=== PATIENT | female | born 1950 | race Asian ===

== ENCOUNTER 2019-12-19 04:50 | Inpatient (IN) | payer OTHER, MEDICARE ==
[2019-12-18 15:39] VITALS: BMI 27.7
[~2019-12-19 04:50] MED LIST: ERTAPENEM SODIUM 1 GM in SODIUM CHLORIDE 50 ML IVPB ONE
[2019-12-19] MEDS ORDERED: ERTAPENEM SODIUM 1 GM VIAL ONE (07:12)
[2019-12-19] MEDS ORDERED: ALVIMOPAN 12 MG CAP PO ONE (07:15)
[2019-12-19] MEDS ORDERED: PROMETHAZINE HCL 25 MG/1 ML VIAL IVPB PRN (08:12)
[2019-12-19] MEDS ORDERED: ONDANSETRON 4 MG/2 ML VIAL IVPUSH PRN ×2 (08:12→15:43)
[2019-12-19] MEDS ORDERED: LACTATED RINGERS SOLUTION 1,000 ML IV SCH (08:15)
[2019-12-19] MEDS ORDERED: BACITRACIN 15 GM TUBE TOPICAL OINTMENT ONE (08:37)
[2019-12-19] MEDS ORDERED: BENZOIN/ALOE VERA/STORAX/TOLU 58 ML BOTTLE ONE (08:37)
[2019-12-19] MEDS ORDERED: BUPIVACAINE LIPOSOME/PF (EXPAREL) 266 MG/20 ML VIAL ONE (09:02)
[2019-12-19] MEDS ORDERED: BUPIVACAINE HCL/PF 0.25% (2.5MG/ML) 10 ML VIAL ONE ×2 (09:02→10:24)
[2019-12-19] MEDS ORDERED: GABAPENTIN 300 MG CAPSULE PO ONE ×2 (09:13→09:15)
[2019-12-19] MEDS ORDERED: MIDAZOLAM HCL 2 MG/2 ML SINGLE DOSE VIAL ONE ×2 (09:24→15:27)
[2019-12-19] MEDS ORDERED: PROPOFOL 20 ML ONE (09:24)
[2019-12-19] MEDS ORDERED: ROCURONIUM BROMIDE 50 MG/5 ML SYRINGE ONE (09:24)
[2019-12-19] MEDS ORDERED: ERTAPENEM SODIUM 1 GM VIAL IVPB ONE (09:47)
[2019-12-19] MEDS ORDERED: DEXAMETHASONE SOD PHOSPHATE 4 MG/1 ML VIAL ONE ×2 (09:49→12:11)
[2019-12-19] MEDS ORDERED: BUPIVACAINE HCL/PF 2.5 MG/ML - 30 ML VIAL IJ ONE ×2 (10:15)
[2019-12-19] MEDS ORDERED: GLYCOPYRROLATE 0.2 MG/1 ML VIAL ONE (10:26)
[2019-12-19] MEDS ORDERED: BUPIVACAINE LIPOSOME/PF (EXPAREL) 266 MG/20 ML VIAL NR ONE (10:48)
[2019-12-19] MEDS ORDERED: ACETAMINOPHEN INJECTION 100 ML IVPB ONE ×2 (12:12→19:18)
[2019-12-19] MEDS ORDERED: NEOSTIGMINE METHYLSULFATE 0.5 MG/ML - 10 ML MDV ONE (12:46)
[2019-12-19] MEDS ORDERED: KETOROLAC TROMETHAMINE 30 MG/1 ML VIAL ONE (14:33)
--- NOTE | 2019-12-19 15:37 | OP ---
Operative Note - Note: Operative Date: 12/19/19 Pre-Operative Diagnosis: Cecal Adenoca Operation: laparoscopic extended right hemicoloectomy Post-Operative Diagnosis: Same as Pre-op Anesthesia: General Specimens Removed: right colon and part of transverse colon Estimated Blood Loss (mls): 50 Operative Report Dictated: Yes
[2019-12-19] MEDS ORDERED: oxyCODONE HCL 5 MG TABLET PO PRN (15:43)
[2019-12-19] MEDS ORDERED: DEXTROSE 5%-0.45% SALINE 1,000 ML IV SCH (15:45)
[2019-12-19] MEDS ORDERED: LABETALOL HCL 5 MG/1 ML (100MG/20 ML VIAL) IVPUSH ONE (19:07)
[2019-12-19] MEDS: ACETAMINOPHEN 1000 MG/100 ML VIAL (NON FORMULARY) IVPB SCH (19:15)
[2019-12-19] MEDS ORDERED: KETOROLAC TROMETHAMINE 15 MG/ML VIAL IVPUSH PRN (20:30)
[2019-12-19] MEDS: ATENOLOL 50 MG TABLET (FP) PO SCH (22:10)
[2019-12-19] MEDS: ATORVASTATIN CA 10 MG TABLET (FP) PO SCH (22:10)
[2019-12-19] MEDS: HEPARIN NA (PORCINE) 5,000 UNITS/ML 1ML VIAL SQ SCH (22:10)
[2019-12-19] MEDS: amLODIPine BESYLATE 5 MG TABLET (FP) PO SCH (22:10)
[2019-12-19] MEDS: ALVIMOPAN 12 MG CAP PO SCH ×2 (22:10→22:12)
[2019-12-20] MEDS: ACETAMINOPHEN 1000 MG/100 ML VIAL (NON FORMULARY) IVPB SCH ×2 (01:13→05:56)
--- NOTE | 2019-12-20 02:01 | OP ---
DATE OF OPERATION: 12/19/2019 PREOPERATIVE DIAGNOSIS: Right colon mass, adenocarcinoma of the colon. POSTOPERATIVE DIAGNOSIS: Right colon mass, adenocarcinoma of the colon. PROCEDURE: Laparoscopic right extended hemicolectomy. SURGEON: Jordan Stein MD VICTIM[employer] ADVOCATE CLERK/SPECIALIST: MILAD Miguel COMPLICATIONS: None. BLEEDING: Minimal. CONDITION: Patient tolerated the procedure well. INDICATIONS: This is a 69-year-old female who presents with anemia and blood in the stools. She underwent an evaluation by colonoscopy, which revealed a right colonic mass, which biopsies were consistent with adenocarcinoma. She also had a transverse colon lesion, which showed some evidence of dysplasia. As a result, it was decided to perform a laparoscopic extended right hemicolectomy in order to remove both lesions. DESCRIPTION OF PROCEDURE: In the operating room, she was then placed in the supine position. After the induction of general anesthesia, she was prepped and draped in the usual sterile fashion. She received DVT prophylaxis and IV antibiotics, gabapentin, and Tylenol preoperatively. At this point in time, the procedure was begun. Insufflation of the Veress needle up to a pressure of 15 mmHg. A total of 4 ports were introduced through the standard Optiview trocar in the left subcostal margin. The ports were placed in an arc fashion along the left paramedian line. The dissection was begun with the patient in the reverse Trendelenburg position and mobilization of the ileocolic artery and entrance into the retroperitoneal space using LigaSure. The ileocolic artery was then divided with Endo FIFI stapler. Mobilization of the mesentery along the transverse colon was then performed. The lesser sac was entered and the omentum, which was quite extensive in the transverse colon appeared to be quite redundant and tortuous. Dissection was carried through towards the hepatic flexure with separation of the omentum from the transverse colon. The transverse colon was then freed from the hepatic flexure and mobilized until the duodenum could be visualized. At this point, the middle colic artery was then dissected off of the digastric epiploic artery in order to allow free mobilization of the mesentery of the transverse colon. Then, the transverse colon was then divided with Endo FIFI stapler. The mesentery was further mobilized. At this point, the ileum was divided with Endo FIFI stapler white cartridge and then the colon was then mobilized off of the white line of Toldt using LigaSure and completely freed from the retroperitoneal attachments to Gerota fascia. The specimen was placed in the pelvis. We stopped at this point. Some adhesions to the left anterior abdominal wall by the splenic flexure were mobilized due to some tension. This allowed complete relaxation of the transverse colon allowing for a tension-free anastomosis. An isoperistaltic [id number] anastomosis was then performed using an Endo FIFI stapler purple cartridge, which was fired between 2 enterotomies. A common channel enterotomy was first approximated with 3 sutures of 2-0 silk and then stapler with purple cartridge was then used to close the enterotomy. Multiple omental sutures were then placed to omental buttress over the anastomosis using a 2-0 PDS suture in a running fashion and then the mesenteric defect was closed using 2-0 V-Loc suture in a running fashion. With that completed, final check for hemostasis was confirmed. The right upper quadrant and right lower quadrant and pelvis were irrigated and suctioned. There was no significant bleeding. Final check for hemostasis was performed. Specimen was placed in Endo Catch bag and the left lower quadrant incision was expanded for approximately about 6 cm. Specimen was placed in the Endo Catch bag. An Tyree wound protector was positioned. Specimen was brought out through this incision and removed completely. A _Closure tray____ was brought into the field and the area was reprepped and draped. We changed gowns and gloves and then the wound was closed in 2 layers using 0 Vicryl sutures to close the posterior layer and then the anterior fascia was closed with number 1 Vicryl. The skin was closed with 4-0 Monocryl. Dermabond was applied. The patient was brought to the recovery room, awake and alert. Patient tolerated the procedure well. Arnie [id number] MTDJan
[2019-12-20] MEDS: HEPARIN NA (PORCINE) 5,000 UNITS/ML 1ML VIAL SQ SCH ×3 (05:56→21:21)
[2019-12-20 07:56] LABS: HEMATOCRIT 31.3 % (32.4-45.2); HEMOGLOBIN 10.2 GM/dL (10.7-15.3); MCH 27.2 pg (25.7-33.7); MCHC 32.7 g/dl (32.0-36.0); MEAN CELL VOLUME 83.1 fl (80-96); MEAN PLT VOLUME 7.9 fl (7.5-11.1); PLATELET COUNT 244 K/MM3 (134-434); RBC 3.77 M/mm3 (3.60-5.2); WHITE BLOOD COUNT 9.6 K/mm3 (4.0-10.0)
[2019-12-20] MEDS ORDERED: PT OWN MED DRAWER 7, Y5N ONE ×3 (08:19→20:59)
--- NOTE | 2019-12-20 08:27 | PN ---
Progress Note (short form) - Note Progress Note: Anesthesia POD#1 S/P Laproscopic Right Colectomy under GA VSS,no N/V, pain is under control. No other complications seen. Clemencia Hector MD.
[2019-12-20 08:45] LABS: CALCIUM 8.5 mg/dL (8.5-10.1); CREATININE 1.9 mg/dL (0.55-1.3); POTASSIUM 4.7 mmol/L (3.5-5.1)
[2019-12-20] MEDS ORDERED: PATIENT'S OWN MEDICATION (NON-FORMULARY) (Simvastatin 10 MG) PO SCH (10:00)
[2019-12-20] MEDS ORDERED: PATIENT'S OWN MEDICATION (NON-FORMULARY) (Telmisartan [Telmisartan] 80 MG) PO SCH (10:00)
[2019-12-20] MEDS: ERTAPENEM SODIUM 1 GM in SODIUM CHLORIDE 50 ML IVPB SCH (10:18)
[2019-12-20] MEDS: ALLOPURINOL 100 MG TABLET (FP) PO SCH (10:19)
[2019-12-20] MEDS: amLODIPine BESYLATE 2.5 MG TABLET (FP) PO SCH (10:19)
[2019-12-20] MEDS: ATENOLOL 50 MG TABLET (FP) PO SCH ×2 (10:19→21:21)
[2019-12-20] MEDS: VALSARTAN 160 MG TABLET (UD) PO SCH (10:20)
[2019-12-20] MEDS ORDERED: traMADol HCL 50 MG TABLET PO PRN (10:22)
[2019-12-20] MEDS: ALVIMOPAN 12 MG CAP PO SCH ×2 (10:23→21:21)
--- NOTE | 2019-12-20 10:34 | PN ---
Progress Note (short form) - Note Progress Note: POD#1 Pt without complaints this am. Tolerating clears. No nausea or emesis. No flatus. Quiroga removed awaiting to urinate. Vital Signs Period Temp Pulse Resp BP Sys/Shepherd Pulse Ox Last 24 Hr 97.6 F-98.2 F 57-90 11-20 113-171/59-96 97-100 GEN: A&0 x3, NAD CV: RRR Lungs: CTA b/l ABD: soft, non-distended, inc tenderness. Inc c/d/i with dermabond LE: no calf tenderness or swelling b/l. TEDs in place CBC, BMP 02/27/20 07:05 02/27/20 07:05 A/P: 69 yo female s/p right hemicolectomy, POD#1 Continue clears as tolerated OOB and ambulate DVT with heparin SQ, MARIA LUZ/SCDS/ambulate Continue IV fluids oral pain medication with tylenol and ultram as needed D/w. Dr. Jimenez
--- NOTE | 2019-12-20 10:47 | PN ---
Progress Note (short form) - Note Progress Note: please see other note written on this date
--- NOTE | 2019-12-20 10:49 | SURG ---
Surgery Yoga Teacher Note Yoga Teacher: Essence Dorsey PA-C Date of Service: 12/19/19 Diagnosis: Cecal Adenoca Procedure: laparoscopic extended right hemicoloectomy I was present for the entirety of the operative procedure. For further detail, please refer to operative report. Visit type - Case Type Case Type: Scheduled - Emergency Emergency Visit: No - New patient This patient is new to me today: Yes Date on this admission: 12/20/19
--- NOTE | 2019-12-20 12:56 | PN ---
Progress Note (short form) - Note Progress Note: Medical coverage for Dr Jc Current Medications Acetaminophen (Tylenol Oral Solution -) 650 mg PO Q6H PRN PRN Reason: PAIN LEVEL 1-5 Allopurinol (Zyloprim -) 100 mg PO DAILY [facility] Last Admin: 12/20/19 10:19 Dose: 100 mg Alvimopan (Entereg Capsule (Restricted) -) 12 mg PO BID [facility] Last Admin: 12/20/19 10:23 Dose: 12 mg Amlodipine Besylate (Norvasc -) 2.5 mg PO DAILY [facility] Last Admin: 12/20/19 10:19 Dose: 2.5 mg Amlodipine Besylate (Norvasc -) 5 mg PO HS [facility] Last Admin: 12/19/19 22:10 Dose: 5 mg Atenolol (Tenormin -) 50 mg PO BID [facility] Last Admin: 12/20/19 10:19 Dose: 50 mg Atorvastatin Calcium (Lipitor -) 10 mg PO HS [facility] Last Admin: 12/19/19 22:10 Dose: 10 mg Heparin Sodium (Porcine) (Heparin -) 5,000 unit SQ TID [facility] Last Admin: 12/20/19 05:56 Dose: 5,000 unit Dextrose/Sodium Chloride (D5-1/2ns -) 1,000 mls @ 100 mls/hr IV ASDIR [facility] Last Admin: 12/19/19 19:30 Dose: 0 mls Ertapenem 1 gm/ Sodium (Chloride) 50 mls @ 100 mls/hr IVPB DAILY [facility] Stop: 12/21/19 08:59 Last Admin: 12/20/19 10:18 Dose: 100 mls/hr Ondansetron HCl (Zofran Injection) 4 mg IVPUSH Q6H PRN PRN Reason: NAUSEA AND/OR VOMITING Promethazine HCl (Phenergan Injection -) 12.5 mg IVPB Q6H PRN PRN Reason: NAUSEA-FOR RESCUE AFTER 15 MIN Tramadol HCl (Ultram -) 50 mg PO Q8H PRN PRN Reason: PAIN LEVEL 6-10 Valsartan (Diovan -) 320 mg PO DAILY [facility] Last Admin: 12/20/19 10:20 Dose: 320 mg Laboratory Results - last 24 hr 02/26/20 02/27/20 02/27/20 21:30 07:05 07:05 WBC 9.6 RBC 3.77 Hgb 10.2 L Hct 31.3 L D MCV 83.1 MCH 27.2 MCHC 32.7 RDW 16.0 H Plt Count 244 D MPV 7.9 Sodium 138 Potassium 4.7 Chloride 110 H Carbon Dioxide 19 L Anion Gap 9 BUN 32.0 H Creatinine 1.9 H Est GFR (CKD-EPI)AfAm 30.21 Est GFR (CKD-EPI)NonAf 26.07 Random Glucose 188 H Calcium 8.5 Blood Type B POSITIVE Antibody Screen Negative Vital Signs Temperature 97.5 F L 12/20/19 10:00 Pulse Rate 62 12/20/19 10:00 Respiratory Rate 20 12/20/19 10:00 Blood Pressure 144/79 12/20/19 10:00 O2 Sat by Pulse Oximetry (%) 98 12/19/19 21:00 CC: none at this time ````````````````````` skin--NL color eyes--eomi heart--RR lungs--clear ext--no Edema neuro--alert, coherent; ambulatory, no focal deficits ``````````````````````````````````````` Summ > anemia--mild; post OP > HTn--with renal insufficiency; baseline unclear; will recheck chems in AM > Cecal carcinoma--as described by surgery; lesion excised; await path report > hyperglycemia--post OP; no Hx of DM; will rpeat. ~~~~~~~~~~~~~~~~~~~~~~~~~~ Discussd with Dr Alicia/sister `````````````````````````````````````` Dr Trinidad
[2019-12-20] MEDS: ACETAMINOPHEN 650 MG/20.3 ML ORAL SOLUTION (CUPS) PO PRN ×2 (14:56→19:58)
--- NOTE | 2019-12-20 19:52 | PN ---
Progress Note, Physician History of Present Illness: s/p lap right partial colectomy for Cecal Ca feeling well tolerating clears denies pain - Current Medication List Current Medications: Active Medications Acetaminophen (Tylenol Oral Solution -) 650 mg PO Q6H PRN PRN Reason: PAIN LEVEL 1-5 Last Admin: 12/20/19 14:56 Dose: 650 mg Allopurinol (Zyloprim -) 100 mg PO DAILY [facility] Last Admin: 12/20/19 10:19 Dose: 100 mg Alvimopan (Entereg Capsule (Restricted) -) 12 mg PO BID [facility] Last Admin: 12/20/19 10:23 Dose: 12 mg Amlodipine Besylate (Norvasc -) 2.5 mg PO DAILY [facility] Last Admin: 12/20/19 10:19 Dose: 2.5 mg Amlodipine Besylate (Norvasc -) 5 mg PO HS [facility] Last Admin: 12/19/19 22:10 Dose: 5 mg Atenolol (Tenormin -) 50 mg PO BID [facility] Last Admin: 12/20/19 10:19 Dose: 50 mg Atorvastatin Calcium (Lipitor -) 10 mg PO HS [facility] Last Admin: 12/19/19 22:10 Dose: 10 mg Heparin Sodium (Porcine) (Heparin -) 5,000 unit SQ TID [facility] Last Admin: 12/20/19 14:05 Dose: 5,000 unit Ertapenem 1 gm/ Sodium (Chloride) 50 mls @ 100 mls/hr IVPB DAILY [facility] Stop: 12/21/19 08:59 Last Admin: 12/20/19 10:18 Dose: 100 mls/hr Ondansetron HCl (Zofran Injection) 4 mg IVPUSH Q6H PRN PRN Reason: NAUSEA AND/OR VOMITING Promethazine HCl (Phenergan Injection -) 12.5 mg IVPB Q6H PRN PRN Reason: NAUSEA-FOR RESCUE AFTER 15 MIN Tramadol HCl (Ultram -) 50 mg PO Q8H PRN PRN Reason: PAIN LEVEL 6-10 Valsartan (Diovan -) 320 mg PO DAILY [facility] Last Admin: 12/20/19 10:20 Dose: 320 mg - Objective Vital Signs: Vital Signs Temperature 97.7 F 12/20/19 14:27 Pulse Rate 67 12/20/19 14:27 Respiratory Rate 20 12/20/19 14:27 Blood Pressure 147/72 12/20/19 14:27 O2 Sat by Pulse Oximetry (%) 99 12/20/19 09:00 Gastrointestinal: Yes: Other (mildly distended, nontender incisions clean and dry) Labs: CBC, BMP 12/20/19 07:05 12/20/19 07:05 Problem List - Problems (1) Colon cancer Code(s): C18.9 - MALIGNANT NEOPLASM OF COLON, UNSPECIFIED Qualifiers: Colon location: ascending Qualified Code(s): C18.2 - Malignant neoplasm of ascending colon Assessment/Plan 69 yr old female s/p lap partial colectomy POD1 feeling well tolerating clears continue to monitor vitals and willl reevaluate and advance diet accordingly monitor BUN/CR and urinary retention
[2019-12-20] MEDS: ATORVASTATIN CA 10 MG TABLET (FP) PO SCH (21:21)
[2019-12-20] MEDS: amLODIPine BESYLATE 5 MG TABLET (FP) PO SCH (21:21)
[2019-12-21] MEDS: ACETAMINOPHEN 650 MG/20.3 ML ORAL SOLUTION (CUPS) PO PRN ×4 (01:12→20:03)
[2019-12-21] MEDS ORDERED: MELATONIN 5 MG TABLETS PO ONE ×2 (01:30→22:00)
[2019-12-21] MEDS: HEPARIN NA (PORCINE) 5,000 UNITS/ML 1ML VIAL SQ SCH ×3 (05:50→21:00)
[2019-12-21 08:17] LABS: BASO % 0.6 % (0-2.0); EOS % 2.1 % (0-4.5); HEMATOCRIT 34.6 % (32.4-45.2); HEMOGLOBIN 11.1 GM/dL (10.7-15.3); LYMPH % 11.3 % (8-40); MCHC 32.2 g/dl (32.0-36.0); MEAN CELL VOLUME 83.7 fl (80-96); MEAN PLT VOLUME 8.4 fl (7.5-11.1); MONO % 4.5 % (3.8-10.2); NEUT % 81.5 % (42.8-82.8); PLATELET COUNT 271 K/MM3 (134-434); RBC 4.13 M/mm3 (3.60-5.2); RDW 16.3 % (11.6-15.6)
--- NOTE | 2019-12-21 08:23 | PN ---
Progress Note (short form) - Note Progress Note: SURGERY 69yo F s/p Rt hemicolectomy POD 2. Pt seen and examined at bedside. Pt states she is feeling well and abd pain well controlled. Pt states she is passing flatus and had BM last night. Pt denies fever, chills, n/v. Pt tolerating clears and ambulating well. Last Vital Signs Temp Pulse Resp BP Pulse Ox 98 F 62 18 143/80 99 12/21/19 04:00 12/21/19 04:00 12/21/19 04:00 12/21/19 04:00 12/20/19 23:09 CBC, BMP 12/21/19 06:40 PE: Gen; a&O x3 Resp: breathing comfortably Abd: soft, nondistended, mild Lt side tenderness over incisions, clean Ext: no edema Problem List - Problems (1) Colon cancer Assessment/Plan: Plan -will adv to regular diet -follow up labs, see if renal function trending down. -OOB/ambulat -pain control Pt discussed with Dr. Stein who agrees with plan Code(s): C18.9 - MALIGNANT NEOPLASM OF COLON, UNSPECIFIED Qualifiers: Colon location: ascending Qualified Code(s): C18.2 - Malignant neoplasm of ascending colon
[2019-12-21 08:39] LABS: BLOOD UREA NITROGEN 30.2 mg/dL (7-18); CALCIUM 8.7 mg/dL (8.5-10.1); CREATININE 1.7 mg/dL (0.55-1.3); POTASSIUM 4.3 mmol/L (3.5-5.1); URIC ACID 6.8 mg/dL (2.6-7.2)
[2019-12-21] MEDS ORDERED: PT OWN MED DRAWER 7, Y5N ONE ×2 (08:58→20:47)
[2019-12-21] MEDS: amLODIPine BESYLATE 2.5 MG TABLET (FP) PO SCH (10:01)
[2019-12-21] MEDS: ALLOPURINOL 100 MG TABLET (FP) PO SCH (10:01)
[2019-12-21] MEDS: ATENOLOL 50 MG TABLET (FP) PO SCH ×2 (10:01→21:00)
[2019-12-21] MEDS: VALSARTAN 160 MG TABLET (UD) PO SCH (10:02)
[2019-12-21] MEDS: ALVIMOPAN 12 MG CAP PO SCH ×2 (10:02→21:00)
--- NOTE | 2019-12-21 12:42 | PN ---
Progress Note (short form) - Note Progress Note: med cover for Dr Jc Current Medications Acetaminophen (Tylenol Oral Solution -) 650 mg PO Q6H PRN PRN Reason: PAIN LEVEL 1-5 Last Admin: 12/21/19 07:48 Dose: 650 mg Allopurinol (Zyloprim -) 100 mg PO DAILY [facility] Last Admin: 12/21/19 10:01 Dose: 100 mg Alvimopan (Entereg Capsule (Restricted) -) 12 mg PO BID [facility] Last Admin: 12/21/19 10:02 Dose: 12 mg Amlodipine Besylate (Norvasc -) 2.5 mg PO DAILY [facility] Last Admin: 12/21/19 10:01 Dose: 2.5 mg Amlodipine Besylate (Norvasc -) 5 mg PO HS [facility] Last Admin: 12/20/19 21:21 Dose: 5 mg Atenolol (Tenormin -) 50 mg PO BID [facility] Last Admin: 12/21/19 10:01 Dose: 50 mg Atorvastatin Calcium (Lipitor -) 10 mg PO HS [facility] Last Admin: 12/20/19 21:21 Dose: 10 mg Heparin Sodium (Porcine) (Heparin -) 5,000 unit SQ TID [facility] Last Admin: 12/21/19 05:50 Dose: 5,000 unit Ondansetron HCl (Zofran Injection) 4 mg IVPUSH Q6H PRN PRN Reason: NAUSEA AND/OR VOMITING Promethazine HCl (Phenergan Injection -) 12.5 mg IVPB Q6H PRN PRN Reason: NAUSEA-FOR RESCUE AFTER 15 MIN Tramadol HCl (Ultram -) 50 mg PO Q8H PRN PRN Reason: PAIN LEVEL 6-10 Valsartan (Diovan -) 320 mg PO DAILY [facility] Last Admin: 12/21/19 10:02 Dose: 320 mg Laboratory Results - last 24 hr 12/21/19 12/21/19 06:40 06:40 WBC 9.0 RBC 4.13 Hgb 11.1 Hct 34.6 MCV 83.7 MCH 27.0 MCHC 32.2 RDW 16.3 H Plt Count 271 MPV 8.4 Absolute Neuts (auto) 7.3 Neutrophils % 81.5 Lymphocytes % 11.3 D Monocytes % 4.5 Eosinophils % 2.1 Basophils % 0.6 Nucleated RBC % 0 Sodium 141 Potassium 4.3 Chloride 113 H Carbon Dioxide 20 L Anion Gap 7 L BUN 30.2 H Creatinine 1.7 H Est GFR (CKD-EPI)AfAm 34.56 Est GFR (CKD-EPI)NonAf 29.82 Random Glucose 79 Uric Acid 6.8 Calcium 8.7 Vital Signs Temperature 98 F 12/21/19 04:00 Pulse Rate 62 12/21/19 04:00 Respiratory Rate 18 12/21/19 04:00 Blood Pressure 143/80 12/21/19 04:00 O2 Sat by Pulse Oximetry (%) 99 12/20/19 23:09 CC: none at this time; passing urine and had BM ````````````````````` skin--NL color eyes--eomi neuro--alert, coherent, no focal deficits ``````````````````````````````````````` Summ > anemia--resolved > HTn--with renal insufficiency; BP okay, renal function improved > Cecal carcinoma--lesion excised; await path report > hyperglycemia--BS was 79 this AM. ~~~~~~~~~~~~~~~~~~~~~~~~~~ Discussd with Dr Alicia(sister), no medical contra-indications for discharge `````````````````````````````````````` Dr Trinidad
--- NOTE | 2019-12-21 15:56 | PN ---
Progress Note, Physician History of Present Illness: s/p lap right partial colectomy for Cecal Ca feeling well tolerating clears advanced ro regular diet. Reports 3 loose bms. denies pain - Current Medication List Current Medications: Active Medications Acetaminophen (Tylenol Oral Solution -) 650 mg PO Q6H PRN PRN Reason: PAIN LEVEL 1-5 Last Admin: 12/21/19 15:05 Dose: 650 mg Allopurinol (Zyloprim -) 100 mg PO DAILY [facility] Last Admin: 12/21/19 10:01 Dose: 100 mg Alvimopan (Entereg Capsule (Restricted) -) 12 mg PO BID [facility] Last Admin: 12/21/19 10:02 Dose: 12 mg Amlodipine Besylate (Norvasc -) 2.5 mg PO DAILY [facility] Last Admin: 12/21/19 10:01 Dose: 2.5 mg Amlodipine Besylate (Norvasc -) 5 mg PO HS [facility] Last Admin: 12/20/19 21:21 Dose: 5 mg Atenolol (Tenormin -) 50 mg PO BID [facility] Last Admin: 12/21/19 10:01 Dose: 50 mg Atorvastatin Calcium (Lipitor -) 10 mg PO HS [facility] Last Admin: 12/20/19 21:21 Dose: 10 mg Heparin Sodium (Porcine) (Heparin -) 5,000 unit SQ TID [facility] Last Admin: 12/21/19 14:43 Dose: 5,000 unit Ondansetron HCl (Zofran Injection) 4 mg IVPUSH Q6H PRN PRN Reason: NAUSEA AND/OR VOMITING Promethazine HCl (Phenergan Injection -) 12.5 mg IVPB Q6H PRN PRN Reason: NAUSEA-FOR RESCUE AFTER 15 MIN Tramadol HCl (Ultram -) 50 mg PO Q8H PRN PRN Reason: PAIN LEVEL 6-10 Valsartan (Diovan -) 320 mg PO DAILY [facility] Last Admin: 12/21/19 10:02 Dose: 320 mg - Objective Vital Signs: Vital Signs Temperature 97.8 F 12/21/19 09:00 Pulse Rate 67 12/21/19 09:00 Respiratory Rate 20 12/21/19 09:00 Blood Pressure 147/69 12/21/19 09:00 O2 Sat by Pulse Oximetry (%) 99 12/21/19 09:00 Labs: CBC, BMP 12/21/19 06:40 02/28/20 06:40 Problem List - Problems (1) Colon cancer Code(s): C18.9 - MALIGNANT NEOPLASM OF COLON, UNSPECIFIED Qualifiers: Colon location: ascending Qualified Code(s): C18.2 - Malignant neoplasm of ascending colon Assessment/Plan 69 yr old female s/p lap partial colectomy POD2 feeling well tolerating diet continue to monitor vitals and willl reevaluate monitor BUN/CR and urinary retention resolved Plan for dc tomorrow provided diarrhea improves
[2019-12-21] MEDS: ATORVASTATIN CA 10 MG TABLET (FP) PO SCH (21:00)
[2019-12-21] MEDS: amLODIPine BESYLATE 5 MG TABLET (FP) PO SCH (21:00)
[2019-12-22] MEDS: ACETAMINOPHEN 650 MG/20.3 ML ORAL SOLUTION (CUPS) PO PRN ×2 (01:04→10:05)
[2019-12-22] MEDS: HEPARIN NA (PORCINE) 5,000 UNITS/ML 1ML VIAL SQ SCH ×2 (07:02→14:37)
[2019-12-22] MEDS: VALSARTAN 160 MG TABLET (UD) PO SCH (10:03)
[2019-12-22] MEDS: ALVIMOPAN 12 MG CAP PO SCH (10:04)
[2019-12-22] MEDS: amLODIPine BESYLATE 2.5 MG TABLET (FP) PO SCH (10:04)
[2019-12-22] MEDS: ALLOPURINOL 100 MG TABLET (FP) PO SCH (10:05)
[2019-12-22] MEDS: ATENOLOL 50 MG TABLET (FP) PO SCH (10:05)
[2019-12-22 11:50] VITALS: BP 154/84; PULSE 73; TEMP 98.1
--- NOTE | 2019-12-25 15:23 | PATH ---
Surgical Pathology Report Patient Name: KRZYSZTOF LANGSTON [facility]. Rec. #: [id number] /Age/Gender: 1950 (Age: 69) / F Account: [id number] Location: [facility] MED/SURG Taken: 12/19/2019 Received: 12/20/2019 Reported: 12/25/2019 Physicians: Jordan Stein M.D. Arnie Mckenzie M.D. Specimen(s) Received RIGHT COLON Clinical History Carcinoma of the cecum Final Diagnosis COLON, RIGHT, LAPAROSCOPIC EXTENDED HEMICOLECTOMY: ADENOCARCINOMA, MODERATELY DIFFERENTIATED, WITH MUCINOUS COMPONENT. TUMOR MEASURES 4.3 x 4.1 CM (GROSS MEASUREMENT). TUMOR LOCATED AT CECUM. TUMOR INVADES INTO PERICOLONIC FAT. FOCAL LYMPHOVASCULAR IDENTIFIED. NO PERINEURAL INVASION IDENTIFIED. SURGICAL MARGINS ARE NEGATIVE. PORTION OF ILEUM AND RIGHT COLON ARE UNINVOLVED BY TUMOR. APPENDIX WITH FIBROUS OBLITERATION. ONE OF SIXTEEN LYMPH NODES WITH METASTATIC CARCINOMA (1/16). LARGEST TUMOR DEPOSIT MEASURES 5 MM IN GREATEST MICROSCOPIC DIMENSION. FOCAL EXTRANODAL EXTENSION IDENTIFIED. PATHOLOGIC STAGE: pT3 pN1a. SEE INVASIVE SUMMARY BELOW. Comment: Elastic special stain performed and interpreted at [facility] utilized to evaluate this case. Findings discussed with Dr. Jc, 12/25/19. Positive and negative controls (internal if applicable) show appropriate results. Comments Colorectal Carcinoma :Surgical Pathology Cancer Case Summary (Based on AJCC TNM 8 th edition) Procedure _X_ Right hemicolectomy Tumor Site _X_ Cecum Tumor Size Greatest dimension (centimeters): 4.3 x 4.1 CM Macroscopic Tumor Perforation _X_ Not identified Histologic Type _X__ Adenocarcinoma with mucinous component Histologic Grade _X_ G2: Moderately differentiated Tumor Extension _X__ Tumor invades through the muscularis propria into pericolorectal tissue Margins _X_ All margins are uninvolved by invasive carcinoma, high-grade dysplasia, intramucosal adenocarcinoma, and adenoma Margins examined: proximal, distal, mesenteric/radial Treatment Effect _X_ No known presurgical therapy Lymphovascular Invasion _X_ Present _X_ Small vessel lymphovascular invasion _X_ Intramural Perineural Invasion _X_ Not identified Tumor Deposits _X_ Not identified Regional Lymph Nodes Lymph Node Examination Number of Lymph Nodes Involved: 1 Number of Lymph Nodes Examined: 16 Pathologic Stage Classification (pTNM, AJCC 8th Edition) Primary Tumor (pT) _X_ pT3: Tumor invades through the muscularis propria into pericolorectal tissues Regional Lymph Nodes (pN) _X_ pN1a: One regional lymph node is positive MISMATCH REPAIR PROTEIN ANALYSIS (IHC) performed at [facility] in [place], [place] ([id number]) and interpreted at [facility] show the following: RESULTS: HMLH-1 LOSS OF NUCLEAR EXPRESSION HMSH-2 INTACT NUCLEAR EXPRESSION HMSH-6 INTACT NUCLEAR EXPRESSION PMS2 LOSS OF NUCLEAR EXPRESSION INTERPRETATION: Loss of nuclear expression of MLH1 and PMS2. Additional molecular studies for BRAF pending, findings will be reported separately. Electronically Signed Chio Walker M.D. Addendum Reported: 12/28/2019 Addendum Diagnosis BRAF MUTATION ANALYSIS performed and interpreted at [facility], [place], [place] ([id number]) show the following: RESULTS: A nucleotide change encoding the V600 mutation was detected. 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 Comment: Although BRAF positivity suggests that the tumor is sporadic, prior personal history of breast carcinoma and family history of uterine cancer; prompts additional testing for Devi syndrome. Findings will be reported separately. Case discussed with Dr. Goddard, 12/28/19. Chio Walker M.D. Gross Description Received in formalin labeled "right colon," is a 7 cm in length portion of terminal ileum with an attached 48 cm in length portion of cecum and right colon. The specimen displays 2 stapled mucosal margins as well as abundant attached pericolonic adipose tissue. The serosa is thomas-way and smooth. There is a 5.5 cm in length unremarkable vermiform appendix attached at the cecum. The mucosa displays a 4.3 x 4.1 cm thomas, polypoid mass in the cecum. The mass is 8 cm from the proximal mucosal margin of resection and 2.0 cm from the mesenteric margin of resection. The mass focally extends through the serosa and possibly into the pericolonic adipose tissue. The remaining mucosa is thomas with normal folds. Sectioning of the pericolonic adipose tissue reveals multiple thomas lymph nodes. Etcher Hand sections are submitted in 24 cassettes as follows: 1-proximal mucosal margin of resection; 2-distal mucosal margin of resection; 3-mesenteric margin of resection; 4-appendix; 5-9-mass; 10-uninvolved terminal ileum; 11-uninvolved right colon; 12-18-one bisected lymph node each; 19-24-two whole possible lymph nodes each. 12/21/2019 [facility]12/21/2019
== END 2019-12-22 15:14 | disposition home or self-care (01) | DRG 331 ==
LOC: JSAMEDAYSX 04:50 → J8W 20:31
PROVIDERS: ADMIT Surgery; ATTEND Surgery
PROC: 0DTL4ZZ Resection of Transverse Colon, Percutaneous Endoscopic Approach (ICD-10-PCS; principal; 2019-12-19 08:30)
DX: C18.2 Malignant neoplasm of ascending colon (principal); D64.9 Anemia, unspecified; R33.9 Retention of urine, unspecified; I10 Essential (primary) hypertension; R73.9 Hyperglycemia, unspecified
CPT/HCPCS: 36415; 36430; 36511; 74018-TC-FY; 74190-TC-FY; 80048; 84550; 85025; 85027; 86850; 86900; 86901; 86922; 88309-TC; 94010; 94760; J0131; J1644; P9038; P9058

== ENCOUNTER 2020-04-16 05:44 | Day surgery (SDC) | payer OTHER, MEDICARE ==
[2020-04-16] MEDS ORDERED: DEXAMETHASONE SODIUM PHOSPHATE 10 MG in SODIUM CHLORIDE 50 ML IVPB ONE (10:00)
[2020-04-16] MEDS ORDERED: FOSAPREPITANT DIMEGLUMINE 150 MG in SODIUM CHLORIDE 150 ML IVPB ONE (10:00)
[2020-04-16] MEDS ORDERED: PALONOSETRON HCL 0.25 MG/5 ML VIAL IVPUSH ONE (10:00)
[2020-04-16] MEDS ORDERED: DEXTROSE 5% IVPB ONE (10:30)
[2020-04-16] MEDS ORDERED: LEUCOVORIN IVPB ONE (10:30)
[2020-04-16] MEDS ORDERED: WATER IV ONE (10:30)
[2020-04-16] MEDS ORDERED: WATER IVPB ONE (10:30)
[2020-04-16] MEDS ORDERED: OXALIPLATIN IV ONE (10:30)
[2020-04-16] MEDS ORDERED: DEXTROSE 5% IV ONE (10:30)
[2020-04-16 12:08] LABS: BASO % 0.7 % (0-2.0); EOS % 2.4 % (0-4.5); HEMATOCRIT 26.1 % (32.4-45.2); HEMOGLOBIN 8.5 GM/dL (10.7-15.3); MCH 29.6 pg (25.7-33.7); MCHC 32.5 g/dl (32.0-36.0); MEAN CELL VOLUME 91.1 fl (80-96); MEAN PLT VOLUME 7.9 fl (7.5-11.1); MONO % 5.1 % (3.8-10.2); NEUT % 76.8 % (42.8-82.8); PLATELET COUNT 211 K/MM3 (134-434); RBC 2.87 M/mm3 (3.60-5.2); WHITE BLOOD COUNT 7.4 K/mm3 (4.0-10.0)
[2020-04-16 12:20] LABS: ALBUMIN 2.6 g/dl (3.4-5.0); BILIRUBIN,TOTAL 0.2 mg/dL (0.2-1); CALCIUM 8.5 mg/dL (8.5-10.1); POTASSIUM 4.6 mmol/L (3.5-5.1); TOT PROT 6.1 g/dl (6.4-8.2)
[2020-04-16] MEDS ORDERED: SODIUM CHLORIDE CP ONE (12:30)
[2020-04-16] MEDS ORDERED: FLUOROURACIL CP ONE (12:30)
[2020-04-16] MEDS ORDERED: SODIUM CHLORIDE 500 ML IV STA (12:35)
[2020-04-16 17:44] VITALS: TEMP 98.5
[2020-04-16 18:03] VITALS: BP 163/88; PULSE 71
== END 2020-04-16 18:15 | disposition home or self-care (01) ==
LOC: JONCCHEMO 05:44
PROVIDERS: ATTEND Internal Medicine Hematology & Oncology
DX: Z51.11 Encounter for antineoplastic chemotherapy (principal); C18.9 Malignant neoplasm of colon, unspecified; I12.9 Hypertensive chronic kidney disease with stage 1 through stage 4 chronic kidney disease, or unspecified chronic kidney disease; N18.9 Chronic kidney disease, unspecified; Z85.3 Personal history of malignant neoplasm of breast
CPT/HCPCS: 36415; 80053; 82378; 85025; 96361; 96366; 96367; 96375; 96413; 96415; G0498; J1453; J2469; J9263

== ENCOUNTER 2020-04-18 06:43 | Day surgery (SDC) | payer OTHER, MEDICARE ==
[2020-04-18 16:50] VITALS: BP 155/76; PULSE 70; TEMP 98.3
[2020-04-18] MEDS ORDERED: PORTA CATH FLUSH 10 ML IVPUSH ONE (16:50)
[2020-04-18] MEDS ORDERED: SODIUM CHLORIDE 500 ML IV STA (17:47)
== END 2020-04-18 17:53 | disposition home or self-care (01) ==
LOC: JONCCHEMO 06:43
PROVIDERS: ATTEND Internal Medicine Hematology & Oncology
PROC: 3E0437Z Introduction of Electrolytic and Water Balance Substance into Central Vein, Percutaneous Approach (ICD-10-PCS; principal; 2020-04-18)
DX: C18.9 Malignant neoplasm of colon, unspecified (principal); I12.9 Hypertensive chronic kidney disease with stage 1 through stage 4 chronic kidney disease, or unspecified chronic kidney disease; N18.9 Chronic kidney disease, unspecified; Z85.3 Personal history of malignant neoplasm of breast
CPT/HCPCS: 96360

== ENCOUNTER 2020-04-23 05:27 | Day surgery (SDC) | payer OTHER, MEDICARE ==
[2020-04-23] MEDS ORDERED: SODIUM CHLORIDE 600 ML IV ONE (10:00)
[2020-04-23 12:29] LABS: BASO % 0.4 % (0-2.0); EOS % 1.5 % (0-4.5); HEMATOCRIT 25.7 % (32.4-45.2); HEMOGLOBIN 8.4 GM/dL (10.7-15.3); LYMPH % 8.3 % (8-40); MCH 30.1 pg (25.7-33.7); MCHC 32.7 g/dl (32.0-36.0); MEAN CELL VOLUME 92.1 fl (80-96); MEAN PLT VOLUME 7.5 fl (7.5-11.1); NEUT % 85.8 % (42.8-82.8); PLATELET COUNT 238 K/MM3 (134-434); RBC 2.79 M/mm3 (3.60-5.2); RDW 16.8 % (11.6-15.6); WHITE BLOOD COUNT 20.8 K/mm3 (4.0-10.0)
[2020-04-23 12:54] LABS: BLOOD UREA NITROGEN 33.4 mg/dL (7-18); CALCIUM 8.7 mg/dL (8.5-10.1); CREATININE 1.9 mg/dL (0.55-1.3); MAGNESIUM 2.2 mg/dL (1.8-2.4)
[2020-04-23 13:19] LABS: ALBUMIN 2.7 g/dl (3.4-5.0); BILIRUBIN,DIRECT 0.1 mg/dL (0.0-0.2); BILIRUBIN,TOTAL 0.2 mg/dL (0.2-1)
[2020-04-23 13:56] LABS: ANISOCYTOSIS 1+; MACROCYTOSIS 0; PLATELET ESTIMATE NORMAL
[2020-04-23 17:22] VITALS: BP 161/70; PULSE 68; TEMP 98.2
[2020-04-23] MEDS ORDERED: PORTA CATH FLUSH 10 ML IVPUSH ONE (18:00)
== END 2020-04-23 16:05 | disposition home or self-care (01) ==
LOC: JONCCHEMO 05:27
PROVIDERS: ATTEND Internal Medicine Hematology & Oncology
PROC: 3E0437Z Introduction of Electrolytic and Water Balance Substance into Central Vein, Percutaneous Approach (ICD-10-PCS; principal; 2020-04-23)
DX: C18.9 Malignant neoplasm of colon, unspecified (principal); I12.9 Hypertensive chronic kidney disease with stage 1 through stage 4 chronic kidney disease, or unspecified chronic kidney disease; N18.9 Chronic kidney disease, unspecified; Z85.3 Personal history of malignant neoplasm of breast
CPT/HCPCS: 36415; 80048; 80076; 82728; 83540; 83550; 83735; 85025; 96360; 96361

== ENCOUNTER 2020-04-30 07:02 | Day surgery (SDC) | payer OTHER, MEDICARE ==
[2020-04-30] MEDS ORDERED: FOSAPREPITANT DIMEGLUMINE 150 MG in SODIUM CHLORIDE 145 ML IVPB ONE (09:30)
[2020-04-30] MEDS ORDERED: DEXAMETHASONE SODIUM PHOSPHATE 10 MG in SODIUM CHLORIDE 50 ML IVPB ONE (09:30)
[2020-04-30] MEDS ORDERED: PALONOSETRON HCL 0.25 MG/5 ML VIAL IVPUSH ONE (09:30)
[2020-04-30 09:58] VITALS: TEMP 97.8
[2020-04-30] MEDS ORDERED: OXALIPLATIN 100 MG, OXALIPLATIN 10 MG in DEXTROSE 5%-WATER - 500 ML IV ONE (10:00)
[2020-04-30] MEDS ORDERED: LEUCOVORIN INJECTION - 668 MG in DEXTROSE 5%-WATER - 250 ML IVPB ONE (10:00)
[2020-04-30] MEDS ORDERED: SODIUM CHLORIDE 500 ML IV STA (10:11)
[2020-04-30 10:29] LABS: BASO % 0.8 % (0-2.0); EOS % 2.4 % (0-4.5); HEMATOCRIT 25.8 % (32.4-45.2); HEMOGLOBIN 8.4 GM/dL (10.7-15.3); MCH 29.7 pg (25.7-33.7); MCHC 32.5 g/dl (32.0-36.0); MEAN CELL VOLUME 91.4 fl (80-96); MEAN PLT VOLUME 7.8 fl (7.5-11.1); MONO % 6.5 % (3.8-10.2); NEUT % 77.3 % (42.8-82.8); PLATELET COUNT 187 K/MM3 (134-434); RBC 2.82 M/mm3 (3.60-5.2); RDW 17.2 % (11.6-15.6); WHITE BLOOD COUNT 7.4 K/mm3 (4.0-10.0)
[2020-04-30 11:01] LABS: ALBUMIN 2.5 g/dl (3.4-5.0); BILIRUBIN,TOTAL 0.3 mg/dL (0.2-1); BLOOD UREA NITROGEN 30.1 mg/dL (7-18); CALCIUM 8.6 mg/dL (8.5-10.1); CREATININE 1.8 mg/dL (0.55-1.3); POTASSIUM 4.6 mmol/L (3.5-5.1)
[2020-04-30] MEDS ORDERED: FLUOROURACIL CP ONE (12:00)
[2020-04-30] MEDS ORDERED: SODIUM CHLORIDE CP ONE (12:00)
[2020-04-30 18:16] VITALS: BP 145/72; PULSE 68
== END 2020-04-30 15:45 | disposition home or self-care (01) ==
LOC: JONCCHEMO 07:02
PROVIDERS: ATTEND Internal Medicine Hematology & Oncology
DX: Z51.11 Encounter for antineoplastic chemotherapy (principal); C18.9 Malignant neoplasm of colon, unspecified; I12.9 Hypertensive chronic kidney disease with stage 1 through stage 4 chronic kidney disease, or unspecified chronic kidney disease; N18.9 Chronic kidney disease, unspecified; Z85.3 Personal history of malignant neoplasm of breast
CPT/HCPCS: 36415; 80053; 85025; 96361; 96366; 96367; 96375; 96413; 96415; G0498; J1453; J2469; J9263

== ENCOUNTER 2020-05-02 07:13 | Day surgery (SDC) | payer OTHER, MEDICARE ==
[2020-05-02 15:35] VITALS: TEMP 97.9
[2020-05-02] MEDS ORDERED: PORTA CATH FLUSH 10 ML IVPUSH ONE (15:45)
[2020-05-02] MEDS ORDERED: SODIUM CHLORIDE 500 ML IV STA (16:10)
[2020-05-02 17:06] VITALS: BP 140/66; PULSE 62
== END 2020-05-02 16:35 | disposition home or self-care (01) ==
LOC: JONCCHEMO 07:13
PROVIDERS: ATTEND Internal Medicine Hematology & Oncology
PROC: 3E0437Z Introduction of Electrolytic and Water Balance Substance into Central Vein, Percutaneous Approach (ICD-10-PCS; principal; 2020-05-02)
DX: C18.9 Malignant neoplasm of colon, unspecified (principal); I12.9 Hypertensive chronic kidney disease with stage 1 through stage 4 chronic kidney disease, or unspecified chronic kidney disease; N18.9 Chronic kidney disease, unspecified; Z85.3 Personal history of malignant neoplasm of breast; Z76.89 Persons encountering health services in other specified circumstances
CPT/HCPCS: 96360; 96361

== ENCOUNTER 2020-05-09 07:13 | Day surgery (SDC) | payer OTHER, MEDICARE ==
[2020-05-09] MEDS ORDERED: SODIUM CHLORIDE 250 ML IV ONE (09:00)
[2020-05-09] MEDS ORDERED: SODIUM CHLORIDE 500 ML IV ONE (09:00)
[2020-05-09 11:02] LABS: EOS % 3.5 % (0-4.5); HEMATOCRIT 27.3 % (32.4-45.2); HEMOGLOBIN 8.9 GM/dL (10.7-15.3); LYMPH % 15.8 % (8-40); MCH 29.8 pg (25.7-33.7); MCHC 32.5 g/dl (32.0-36.0); MEAN CELL VOLUME 91.8 fl (80-96); MEAN PLT VOLUME 7.6 fl (7.5-11.1); MONO % 12.1 % (3.8-10.2); NEUT % 67.6 % (42.8-82.8); PLATELET COUNT 241 K/MM3 (134-434); RBC 2.97 M/mm3 (3.60-5.2); RDW 16.6 % (11.6-15.6)
[2020-05-09 11:33] LABS: ALBUMIN 2.7 g/dl (3.4-5.0); BILIRUBIN,TOTAL 0.6 mg/dL (0.2-1); BLOOD UREA NITROGEN 39.7 mg/dL (7-18); CALCIUM 8.7 mg/dL (8.5-10.1); CREATININE 2.1 mg/dL (0.55-1.3); POTASSIUM 3.8 mmol/L (3.5-5.1); TOT PROT 6.4 g/dl (6.4-8.2)
[2020-05-09 12:35] LABS: ANISOCYTOSIS 1+; MACROCYTOSIS 1+; OVALOCYTE 1+; PLATELET ESTIMATE NORMAL
[2020-05-09 14:33] VITALS: TEMP 98
[2020-05-09 14:34] VITALS: BP 156/83; PULSE 64
== END 2020-05-09 11:45 | disposition home or self-care (01) ==
LOC: JONCCHEMO 07:13
PROVIDERS: ATTEND Internal Medicine Hematology & Oncology
PROC: 3E0437Z Introduction of Electrolytic and Water Balance Substance into Central Vein, Percutaneous Approach (ICD-10-PCS; principal; 2020-05-09)
DX: C18.9 Malignant neoplasm of colon, unspecified (principal); I12.9 Hypertensive chronic kidney disease with stage 1 through stage 4 chronic kidney disease, or unspecified chronic kidney disease; N18.9 Chronic kidney disease, unspecified; Z85.3 Personal history of malignant neoplasm of breast; Z76.89 Persons encountering health services in other specified circumstances
CPT/HCPCS: 36415; 80053; 82728; 83540; 83550; 85025; 96360; 96361

== ENCOUNTER 2020-05-14 07:15 | Day surgery (SDC) | payer OTHER, MEDICARE ==
[2020-05-14 09:54] LABS: BASO % 0.8 % (0-2.0); EOS % 3.4 % (0-4.5); HEMATOCRIT 26.8 % (32.4-45.2); HEMOGLOBIN 8.9 GM/dL (10.7-15.3); MCHC 33.3 g/dl (32.0-36.0); MEAN PLT VOLUME 7.8 fl (7.5-11.1); MONO % 5.8 % (3.8-10.2); PLATELET COUNT 201 K/MM3 (134-434); RBC 2.88 M/mm3 (3.60-5.2); WHITE BLOOD COUNT 6.6 K/mm3 (4.0-10.0)
[2020-05-14] MEDS ORDERED: SODIUM CHLORIDE 500 ML IV STA (09:55)
[2020-05-14 10:37] LABS: ALBUMIN 2.6 g/dl (3.4-5.0); BILIRUBIN,TOTAL 0.2 mg/dL (0.2-1); BLOOD UREA NITROGEN 36.2 mg/dL (7-18); CALCIUM 9.1 mg/dL (8.5-10.1); CREATININE 1.9 mg/dL (0.55-1.3); POTASSIUM 3.9 mmol/L (3.5-5.1); TOT PROT 6.3 g/dl (6.4-8.2)
[2020-05-14] MEDS ORDERED: FOSAPREPITANT DIMEGLUMINE 150 MG in SODIUM CHLORIDE 145 ML IVPB ONE (11:15)
[2020-05-14] MEDS ORDERED: PALONOSETRON HCL 0.25 MG/5 ML VIAL IVPUSH ONE (11:15)
[2020-05-14] MEDS ORDERED: DEXAMETHASONE SODIUM PHOSPHATE 10 MG in SODIUM CHLORIDE 50 ML IVPB ONE (11:15)
[2020-05-14] MEDS ORDERED: LEUCOVORIN INJECTION - 668 MG in DEXTROSE 5%-WATER - 250 ML IVPB ONE (11:45)
[2020-05-14] MEDS ORDERED: OXALIPLATIN 100 MG, OXALIPLATIN 10 MG in DEXTROSE 5%-WATER - 500 ML IV ONE (11:45)
[2020-05-14] MEDS ORDERED: SODIUM CHLORIDE CP ONE (13:45)
[2020-05-14] MEDS ORDERED: FLUOROURACIL CP ONE (13:45)
[2020-05-14] MEDS ORDERED: DEXAMETHASONE SOD PHOSPHATE 10 MG/1 ML VIAL IVPB ONE (17:15)
[2020-05-14 18:03] VITALS: BP 160/82; PULSE 68; TEMP 98.1
== END 2020-05-14 18:47 | disposition home or self-care (01) ==
LOC: JONCCHEMO 07:15
PROVIDERS: ATTEND Internal Medicine Hematology & Oncology
DX: Z51.11 Encounter for antineoplastic chemotherapy (principal); C18.9 Malignant neoplasm of colon, unspecified; I12.9 Hypertensive chronic kidney disease with stage 1 through stage 4 chronic kidney disease, or unspecified chronic kidney disease; N18.9 Chronic kidney disease, unspecified
CPT/HCPCS: 36415; 80053; 85025; 96361; 96366; 96367; 96375; 96413; 96415; G0498; J1100; J1453; J2469; J9263

== ENCOUNTER 2020-05-16 07:09 | Day surgery (SDC) | payer OTHER, MEDICARE ==
[2020-05-16] MEDS ORDERED: SODIUM CHLORIDE 750 ML IV STA (14:38)
[2020-05-16 16:24] VITALS: TEMP 98.1
[2020-05-16] MEDS ORDERED: PORTA CATH FLUSH 10 ML IVPUSH ONE (18:01)
[2020-05-16 18:29] VITALS: BP 158/80; PULSE 65
== END 2020-05-16 18:00 | disposition home or self-care (01) ==
LOC: JONCCHEMO 07:09
PROVIDERS: ATTEND Internal Medicine Hematology & Oncology
PROC: 3E0437Z Introduction of Electrolytic and Water Balance Substance into Central Vein, Percutaneous Approach (ICD-10-PCS; principal; 2020-05-16)
DX: C18.9 Malignant neoplasm of colon, unspecified (principal); I12.9 Hypertensive chronic kidney disease with stage 1 through stage 4 chronic kidney disease, or unspecified chronic kidney disease; N18.9 Chronic kidney disease, unspecified
CPT/HCPCS: 96360; 96361

== ENCOUNTER 2020-05-23 13:21 | Day surgery (SDC) | payer OTHER, MEDICARE ==
[2020-05-23 11:09] LABS: HEMATOCRIT 27.5 % (32.4-45.2); MCH 30.4 pg (25.7-33.7); MCHC 32.7 g/dl (32.0-36.0); MEAN PLT VOLUME 7.8 fl (7.5-11.1); PLATELET COUNT 191 K/MM3 (134-434); RBC 2.96 M/mm3 (3.60-5.2); RDW 16.6 % (11.6-15.6); WHITE BLOOD COUNT 6.8 K/mm3 (4.0-10.0)
[2020-05-23 11:37] LABS: EPI CELLS 30 /uL (0-25.1); HYALINE CASTS 4 /uL (0-3.1); URINE APPEARANCE TURBID; URINE BILIRUBIN NEGATIVE (NEGATIVE); URINE COLOR YELLOW; URINE GLUCOSE (UA) NEGATIVE (NEGATIVE); URINE KETONE NEGATIVE (NEGATIVE); URINE LEUK ESTERASE 2+ (NEGATIVE); URINE NITRITE NEGATIVE (NEGATIVE); URINE PROTEIN 3+ (NEGATIVE); URINE UROBILINOGEN 0.2 mg/dL (0.2-1.0); URINE WBC 2264 /uL (0-25.8)
[2020-05-23 11:49] LABS: URINE RBC 276.9 /uL (0-23.9)
[2020-05-23 11:52] LABS: ERYTHROCYTE SEDIMENTATION RATE 111 mm/hr (0-30)
[2020-05-23 11:53] LABS: BLOOD UREA NITROGEN 25.9 mg/dL (7-18); CREATININE 2.1 mg/dL (0.55-1.3); GLUCOSE,RANDOM 99 mg/dL (74-106)
[2020-05-23 11:54] LABS: ALBUMIN 2.8 g/dl (3.4-5.0); ALK PHOS 132 U/L (45-117); ANION GAP 9 MMOL/L (8-16); BILIRUBIN,TOTAL 0.3 mg/dL (0.2-1); CALCIUM 8.7 mg/dL (8.5-10.1); CHLORIDE 106 mmol/L (98-107); CO2 23 mmol/L (21-32); IRON SERUM 47 ug/dL (50-175); MAGNESIUM 2.2 mg/dL (1.8-2.4); POTASSIUM 3.9 mmol/L (3.5-5.1); SGOT/AST 20 U/L (15-37); SGPT/ALT 18 U/L (13-61); SODIUM 138 mmol/L (136-145); TOT PROT 6.5 g/dl (6.4-8.2); URIC ACID 8.7 mg/dL (2.6-7.2)
[2020-05-23] MEDS ORDERED: SODIUM CHLORIDE 1,000 ML IV ONE (16:00)
[2020-05-23 17:26] VITALS: BP 148/66; PULSE 62; TEMP 97.8
== END 2020-05-23 16:30 | disposition home or self-care (01) ==
LOC: JONCNONCHE 13:21
PROVIDERS: ATTEND Internal Medicine Hematology & Oncology
PROC: 3E0437Z Introduction of Electrolytic and Water Balance Substance into Central Vein, Percutaneous Approach (ICD-10-PCS; principal; 2020-05-23)
DX: C18.9 Malignant neoplasm of colon, unspecified (principal)
CPT/HCPCS: 36415; 80053; 80061; 81003; 82306; 82565; 82784; 83036; 83540; 83721; 83735; 84100; 84156; 84436; 84439; 84443; 84480; 84481; 84550; 85027; 85651; 86335; 86431; 86850; 86900; 86901; 87086; 87340; 96360; 96361

== ENCOUNTER 2021-03-26 05:11 | Day surgery (SDC) | payer OTHER, MEDICARE ==
[2021-03-24 11:58] VITALS: BMI 27.4
[2021-03-26 10:42] VITALS: BP 130/60; PULSE 80; TEMP 97.8
== END 2021-03-26 10:32 | disposition home or self-care (01) ==
LOC: JASU-ENDO 05:11
PROVIDERS: ATTEND Internal Medicine Gastroenterology
PROC: 0DJD8ZZ Inspection of Lower Intestinal Tract, Via Natural or Artificial Opening Endoscopic (ICD-10-PCS; principal; 2021-03-26 09:16)
DX: Z12.11 Encounter for screening for malignant neoplasm of colon (principal); Z85.038 Personal history of other malignant neoplasm of large intestine; K57.30 Diverticulosis of large intestine without perforation or abscess without bleeding; Z98.0 Intestinal bypass and anastomosis status

== ENCOUNTER 2021-05-29 07:11 | Day surgery (SDC) | payer OTHER, MEDICARE ==
[2021-05-29] MEDS ORDERED: FERRIC CARBOXYMALTOSE 750 MG in SODIUM CHLORIDE 250 ML IVPB ONE (10:00)
[2021-05-29 16:41] VITALS: BP 129/73; PULSE 66; TEMP 97.6
== END 2021-05-29 15:00 | disposition home or self-care (01) ==
LOC: JONCNONCHE 07:11
PROVIDERS: ATTEND Internal Medicine Hematology & Oncology
PROC: 3E033GC Introduction of Other Therapeutic Substance into Peripheral Vein, Percutaneous Approach (ICD-10-PCS; principal; 2021-05-29)
DX: D50.9 Iron deficiency anemia, unspecified (principal)
CPT/HCPCS: 96365; J1439

== ENCOUNTER 2021-06-05 07:07 | Day surgery (SDC) | payer OTHER, MEDICARE ==
[2021-06-05] MEDS ORDERED: FERRIC CARBOXYMALTOSE 750 MG in SODIUM CHLORIDE 250 ML IVPB ONE (10:00)
[2021-06-05 17:31] VITALS: TEMP 98.7
[2021-06-05 17:32] VITALS: BP 122/65; PULSE 69
== END 2021-06-05 14:55 | disposition home or self-care (01) ==
LOC: JONCNONCHE 07:07
PROVIDERS: ATTEND Internal Medicine Hematology & Oncology
PROC: 3E033GC Introduction of Other Therapeutic Substance into Peripheral Vein, Percutaneous Approach (ICD-10-PCS; principal; 2021-06-05)
DX: D50.9 Iron deficiency anemia, unspecified (principal)
CPT/HCPCS: 96365; J1439

== ENCOUNTER 2023-01-19 05:32 | Day surgery (SDC) | payer OTHER, MEDICARE ==
[2023-01-14 11:43] VITALS: BMI 27.1
[2023-01-19] MEDS ORDERED: BUPIVACAINE HCL/PF 0.5% (5MG/ML) 10 ML VIAL ONE (07:48)
[2023-01-19] MEDS ORDERED: PROPOFOL 20 ML ONE (07:59)
[2023-01-19] MEDS ORDERED: SUCCINYLCHOLINE CHLORIDE 200 MG/10 ML SYRINGE ONE (07:59)
[2023-01-19] MEDS ORDERED: ROCURONIUM BROMIDE 50 MG/5 ML SYRINGE ONE (07:59)
[2023-01-19] MEDS ORDERED: ceFAZolin SODIUM 1 GM VIAL ONE (08:13)
[2023-01-19] MEDS ORDERED: ceFAZolin 2 GRAM PREMIX BAG IVPB ONE (08:14)
[2023-01-19] MEDS ORDERED: BUPIVACAINE HCL/PF 0.5% (5MG/ML) 10 ML VIAL IJ ONE (08:19)
[2023-01-19] MEDS ORDERED: DEXAMETHASONE SOD PHOSPHATE 4 MG/1 ML VIAL ONE (08:28)
[2023-01-19] MEDS ORDERED: SUGAMMADEX SODIUM 200 MG/2 ML VIAL ONE (08:45)
[2023-01-19] MEDS ORDERED: oxyCODONE HCL 5 MG TABLET PO PRN (09:24)
[2023-01-19] MEDS ORDERED: ONDANSETRON 4 MG/2 ML VIAL IVPUSH PRN (09:24)
[2023-01-19] MEDS ORDERED: LACTATED RINGERS SOLUTION 1,000 ML IV SCH (09:30)
[2023-01-19 11:00] VITALS: RESP 18
[2023-01-19 12:23] VITALS: BP 136/72; PULSE 73; TEMP 97.6
== END 2023-01-19 12:10 | disposition home or self-care (01) ==
LOC: JASU-SURG 05:32
PROVIDERS: ATTEND Surgery
PROC: 0WHG43Z Insertion of Infusion Device into Peritoneal Cavity, Percutaneous Endoscopic Approach (ICD-10-PCS; principal; 2023-01-19 08:00)
DX: I12.0 Hypertensive chronic kidney disease with stage 5 chronic kidney disease or end stage renal disease (principal); N18.6 End stage renal disease
CPT/HCPCS: 94760; J1644

== ENCOUNTER 2024-12-26 14:54 | Inpatient (IN) | payer OTHER, MEDICARE ==
[2024-12-26 16:37] LABS: BASO % 0.5 % (0-2.0); EOS % 0.8 % (0-4.5); HEMATOCRIT 35.8 % (32.4-45.2); HEMOGLOBIN 11.1 GM/dL (10.7-15.3); LYMPH % 11.1 % (8-40); MCH 30.7 pg (25.7-33.7); MCHC 31.2 g/dl (32.0-36.0); MEAN CELL VOLUME 98.5 fl (80-96); MEAN PLT VOLUME 7.1 fl (7.5-11.1); MONO % 6.2 % (3.8-10.2); NEUT % 81.4 % (42.8-82.8); PLATELET COUNT 374 10^3/uL (134-434); RBC 3.63 M/mm3 (3.60-5.2); WHITE BLOOD COUNT 10.7 K/mm3 (4.0-10.0)
[2024-12-26] MEDS ORDERED: FUROSEMIDE 40 MG/4 ML INJECTABLE VIAL ONE (16:40)
[2024-12-26 16:43] LABS: VENOUS BASE EXCESS 2.8 mmol/L (-2-2); VENOUS O2 SATURATION 40.9 % (70-80); VENOUS PCO2 49.7 mmHg (38-52); VENOUS PH 7.381 (7.310-7.410)
[2024-12-26 16:44] LABS: INR 1.03 (0.83-1.09); PROTHROMBIN TIME (PATIENT) 11.2 SEC (9.7-13.0)
[2024-12-26] MEDS: FUROSEMIDE 40 MG/4 ML INJECTABLE VIAL IVPUSH ONE (16:44)
[2024-12-26 16:47] LABS: ACTIVATED PTT 26.7 SECONDS (25.2-36.5)
[2024-12-26 16:55] LABS: CHLORIDE 98 mmol/L (98-107); POTASSIUM 4.4 mmol/L (3.5-5.1); SODIUM 137 mmol/L (136-145)
[2024-12-26 16:57] LABS: CALCIUM 9.3 mg/dL (8.5-10.1)
[2024-12-26 16:58] LABS: ALBUMIN 2.3 g/dl (3.4-5.0); ANION GAP 10 mmol/L (4-13); BLOOD UREA NITROGEN 55.6 mg/dL (7-18); CO2 29 mmol/L (21-32); GLUCOSE,RANDOM 105 mg/dL (74-106); MAGNESIUM 2.8 mg/dL (1.8-2.4)
[2024-12-26 17:01] LABS: PHOSPHOROUS 5.4 mg/dL (2.5-4.9); SGOT/AST 15 U/L (15-37); SGPT/ALT 24 U/L (13-61)
[2024-12-26 17:02] LABS: BILIRUBIN,TOTAL 0.3 mg/dL (0.2-1)
[2024-12-26 17:03] LABS: TOT PROT 6.6 g/dl (6.4-8.2)
[2024-12-26 17:04] LABS: ALK PHOS 111 U/L (45-117)
[2024-12-26 17:32] LABS: N-TERMINAL BNP 49172.2 pg/ml (5-450)
[2024-12-26] MEDS ORDERED: CEFTRIAXONE 1 G/50 ML PREMIX 50 ML IVPB ONE (19:24)
[2024-12-26] MEDS: CEFTRIAXONE 1,000 MG in DEXTROSE 5%-WATER - 50 ML IVPB ONE (19:25)
[2024-12-26] MEDS: AZITHROMYCIN IVPB 500 MG in DEXTROSE 5%-WATER - 250 ML IVPB ONE (19:44)
[2024-12-26] MEDS ORDERED: AZITHROMYCIN IVPB 500 MG/250 ML BAG IVPB ONE (20:39)
[2024-12-26] MEDS: PERITONEAL DIALYSIS 2.5% SOLN 2,500 ML IP SCH (23:52)
[2024-12-26] MEDS: HEPARIN NA (PORCINE) 5,000 UNITS/ML 1ML VIAL SQ SCH (23:53)
[2024-12-27 07:47] LABS: HEMOGLOBIN 10.1 GM/dL (10.7-15.3); MCH 31.4 pg (25.7-33.7); MCHC 31.6 g/dl (32.0-36.0); MEAN CELL VOLUME 99.1 fl (80-96); PLATELET COUNT 339 10^3/uL (134-434); RBC 3.23 M/mm3 (3.60-5.2); WHITE BLOOD COUNT 7.2 K/mm3 (4.0-10.0)
[2024-12-27 08:06] LABS: CHLORIDE 100 mmol/L (98-107); POTASSIUM 4.1 mmol/L (3.5-5.1); SODIUM 137 mmol/L (136-145)
[2024-12-27 08:12] LABS: ANION GAP 11 mmol/L (4-13); BLOOD UREA NITROGEN 55.3 mg/dL (7-18); CALCIUM 8.8 mg/dL (8.5-10.1); CO2 27 mmol/L (21-32); GLUCOSE,RANDOM 159 mg/dL (74-106); MAGNESIUM 2.7 mg/dL (1.8-2.4)
[2024-12-27 08:16] LABS: CREATININE 9.1 mg/dL (0.55-1.3); PHOSPHOROUS 5.8 mg/dL (2.5-4.9)
[2024-12-27] MEDS ORDERED: ENOXAPARIN NA (PORCINE) 30 MG/0.3 ML DISP.SYRIN SQ SCH (10:00)
[2024-12-27] MEDS: ALLOPURINOL 100 MG TABLET (FP) PO SCH (10:34)
[2024-12-27] MEDS: AZITHROMYCIN IVPB 500 MG/250 ML BAG IVPB SCH (10:34)
[2024-12-27] MEDS: VALSARTAN 160 MG TABLET PO SCH (10:34)
[2024-12-27] MEDS: CEFTRIAXONE 1 G/50 ML PREMIX 50 ML IVPB SCH (10:35)
[2024-12-27] MEDS: SERTRALINE HCL 25 MG TABLET (FP) PO SCH (13:56)
[2024-12-27] MEDS: FUROSEMIDE 40 MG/4 ML INJECTABLE VIAL IVPUSH SCH (13:57)
[2024-12-27] MEDS: ONDANSETRON 4 MG/2 ML VIAL IVPUSH PRN (14:45)
[2024-12-27 17:16] LABS: BF WBC & OTHER NUCLEATED CELLS 2548 /mm3
[2024-12-27 17:24] LABS: BODY FLUID MACROPHAGES 6 %; BODY FLUID MONOCYTE 29 %
[2024-12-27] MEDS: CALCIUM ACETATE 667 MG CAPSULE (FP) PO SCH (17:32)
[2024-12-27] MEDS: ACETAMINOPHEN 1000 MG/100 ML BAG IVPB ONE (17:38)
[2024-12-27] MEDS: HYDROmorphone HCL CARPU-JECT 2 MG/1 ML DISP.SYRIN IVPUSH ONE (20:24)
[2024-12-27 20:51] LABS: HIV INTERPRETATION NEGATIVE (NEGATIVE)
[2024-12-28 09:46] LABS: BASO % 0.6 % (0-2.0); EOS % 1.3 % (0-4.5); HEMATOCRIT 32.6 % (32.4-45.2); HEMOGLOBIN 10.5 GM/dL (10.7-15.3); LYMPH % 10.3 % (8-40); MCH 31.7 pg (25.7-33.7); MCHC 32.2 g/dl (32.0-36.0); MEAN CELL VOLUME 98.7 fl (80-96); MEAN PLT VOLUME 7.2 fl (7.5-11.1); MONO % 5.9 % (3.8-10.2); NEUT % 81.9 % (42.8-82.8); PLATELET COUNT 331 10^3/uL (134-434); RDW 16.2 % (11.6-15.6); WHITE BLOOD COUNT 7.8 K/mm3 (4.0-10.0)
[2024-12-28 10:11] LABS: CHLORIDE 99 mmol/L (98-107); POTASSIUM 3.8 mmol/L (3.5-5.1); SODIUM 139 mmol/L (136-145)
[2024-12-28 10:19] LABS: CALCIUM 8.3 mg/dL (8.5-10.1)
[2024-12-28 10:20] LABS: ALBUMIN 1.8 g/dl (3.4-5.0); ANION GAP 9 mmol/L (4-13); BLOOD UREA NITROGEN 46.2 mg/dL (7-18); CO2 31 mmol/L (21-32); GLUCOSE,RANDOM 180 mg/dL (74-106)
[2024-12-28 10:23] LABS: SGOT/AST 11 U/L (15-37); SGPT/ALT 17 U/L (13-61)
[2024-12-28 10:24] LABS: BILIRUBIN,TOTAL 0.3 mg/dL (0.2-1)
[2024-12-28 10:26] LABS: ALK PHOS 82 U/L (45-117); TOT PROT 5.6 g/dl (6.4-8.2)
[2024-12-28 10:36] LABS: CREATININE 8.6 mg/dL (0.55-1.3)
[2024-12-28] MEDS: HYDROmorphone HCL CARPU-JECT 2 MG/1 ML DISP.SYRIN IVPUSH PRN (15:34)
[2024-12-28] MEDS: ATENOLOL 25 MG TABLET (FP) PO SCH (17:09)
[2024-12-28] MEDS: PROCHLORPERAZINE INJECTION 10 MG/2 ML VIAL IVPB ONE (23:37)
[2024-12-29] MEDS: VALSARTAN 80 MG TABLET PO SCH (09:13)
[2024-12-29] MEDS: AZITHROMYCIN 250 MG TABLET PO ONE (11:55)
[2024-12-29 13:07] LABS: BODY FLUID ALBUMIN 2.1 g/dL (Not Estab.)
[2024-12-29] MEDS: BACITRACIN ZINC 15 GM TUBE TOPICAL OINTMENT TP ONE (22:16)
[2024-12-29] MEDS: MINERAL OIL/PET HY-PHL TOPICAL OINTMENT 454 GM JAR TP SCH (22:17)
[2024-12-30] MEDS: ACETAMINOPHEN 325 MG TABLET (FP) PO ONE ×2 (01:10→06:22)
[2024-12-30 08:24] LABS: BASO % 0.5 % (0-2.0); EOS % 3.7 % (0-4.5); HEMATOCRIT 31.3 % (32.4-45.2); HEMOGLOBIN 10.2 GM/dL (10.7-15.3); LYMPH % 13.6 % (8-40); MCH 31.6 pg (25.7-33.7); MCHC 32.5 g/dl (32.0-36.0); MEAN CELL VOLUME 97.2 fl (80-96); MEAN PLT VOLUME 6.9 fl (7.5-11.1); MONO % 7.8 % (3.8-10.2); NEUT % 74.4 % (42.8-82.8); PLATELET COUNT 296 10^3/uL (134-434); RBC 3.22 M/mm3 (3.60-5.2); RDW 15.6 % (11.6-15.6); WHITE BLOOD COUNT 6.6 K/mm3 (4.0-10.0)
[2024-12-30 08:42] LABS: POTASSIUM 3.3 mmol/L (3.5-5.1)
[2024-12-30 08:45] LABS: ALBUMIN 1.8 g/dl (3.4-5.0); BLOOD UREA NITROGEN 46.1 mg/dL (7-18); CALCIUM 8.5 mg/dL (8.5-10.1)
[2024-12-30 08:49] LABS: CREATININE 7.4 mg/dL (0.55-1.3)
[2024-12-30 08:50] LABS: BILIRUBIN,TOTAL 0.3 mg/dL (0.2-1); TOT PROT 5.6 g/dl (6.4-8.2)
[2024-12-30] MEDS: AZITHROMYCIN 250 MG TABLET PO SCH (11:07)
[2024-12-30] MEDS: LOPERAMIDE HCL 2 MG CAPSULE PO ONE (12:29)
[2024-12-30] MEDS: ACETAMINOPHEN 325 MG TABLET (FP) PO PRN (17:46)
[2024-12-31 08:58] LABS: HEMATOCRIT 34.1 % (32.4-45.2); HEMOGLOBIN 10.8 GM/dL (10.7-15.3); MCH 31.5 pg (25.7-33.7); MCHC 31.8 g/dl (32.0-36.0); MEAN CELL VOLUME 99.1 fl (80-96); MEAN PLT VOLUME 6.7 fl (7.5-11.1); PLATELET COUNT 309 10^3/uL (134-434); RBC 3.44 M/mm3 (3.60-5.2); RDW 15.4 % (11.6-15.6); WHITE BLOOD COUNT 5.1 K/mm3 (4.0-10.0)
[2024-12-31 09:35] LABS: POTASSIUM 3.1 mmol/L (3.5-5.1)
[2024-12-31 09:36] LABS: CALCIUM 8.7 mg/dL (8.5-10.1)
[2024-12-31 09:37] LABS: ALBUMIN 1.9 g/dl (3.4-5.0); BLOOD UREA NITROGEN 42.1 mg/dL (7-18)
[2024-12-31 09:39] LABS: PHOSPHOROUS 3.3 mg/dL (2.5-4.9)
[2024-12-31 09:40] LABS: CREATININE 6.6 mg/dL (0.55-1.3)
[2024-12-31 09:41] LABS: BILIRUBIN,TOTAL 0.3 mg/dL (0.2-1)
[2024-12-31 09:50] LABS: TOT PROT 5.8 g/dl (6.4-8.2)
[2024-12-31] MEDS: LOPERAMIDE HCL 2 MG CAPSULE PO ONE (10:48)
[2024-12-31] MEDS: PERITONEAL DIALYSIS 2.5% SOLN 2,000 ML IP SCH (12:06)
[2024-12-31 15:35] VITALS: BP 135/74; PULSE 74; RESP 18; TEMP 98.7
[2024-12-31] MEDS: POTASSIUM CHLORIDE ORAL LIQUID 20 MEQ/15 ML PO ONE (15:54)
[2024-12-31 16:10] VITALS: BMI 25.4
[2024-12-31] MEDS: PERITONEAL DIALYSIS 1.5% SOLN 2,000 ML IP SCH (18:03)
[2025-01-01] MEDS ORDERED: TORSEMIDE 100 MG TABLET PO SCH (10:00)
== END 2024-12-31 18:30 | disposition home or self-care (01) | DRG 186 ==
LOC: JER 14:54 → JERBED 16:46 → OBSVTOIN 17:32 → J4S 21:44
PROVIDERS: ADMIT Internal Medicine; ATTEND Internal Medicine
PROC: 0W9930Z Drainage of Right Pleural Cavity with Drainage Device, Percutaneous Approach (ICD-10-PCS; principal; 2024-12-27)
PROC: BW24ZZZ Computerized Tomography (CT Scan) of Chest and Abdomen (ICD-10-PCS; 2024-12-27)
PROC: 3E1M39Z Irrigation of Peritoneal Cavity using Dialysate, Percutaneous Approach (ICD-10-PCS; 2024-12-30)
DX: J90 Pleural effusion, not elsewhere classified (principal); N18.6 End stage renal disease; I13.2 Hypertensive heart and chronic kidney disease with heart failure and with stage 5 chronic kidney disease, or end stage renal disease; I50.32 Chronic diastolic (congestive) heart failure; E78.5 Hyperlipidemia, unspecified
CPT/HCPCS: 0241U-QW; 32557; 36415; 71045-TC-FY; 71046-TC-FY; 71250-TC; 76775-TC; 76856-TC; 80048; 80053; 82042; 82150; 82465; 82550; 82803; 82945; 82962; 83615; 83735; 83880; 83986; 84100; 84157; 84439; 84443; 84478; 84484; 85025; 85027; 85610; 85730; 86803; 86850; 86900; 86901; 87070; 87075; 87102; 87116; 87205; 87206; 87210; 87324; 87389; 87449; 88108; 88305-TC; 93005; 93010; 93306-TC; 99285-25; G0378; J0131; J1644